=== PATIENT | female | born 1935 | race Caucasian/White ===

== ENCOUNTER 2020-07-17 08:32 | Outpatient (CLI) | payer MEDICARE, OTHER | END 2020-07-17 08:33 | disposition home or self-care (01) | LOC: CSHWCC 08:32 | PROVIDERS: ATTEND Nurse Practitioner Family | DX: I87.331 Chronic venous hypertension (idiopathic) with ulcer and inflammation of right lower extremity (principal); I87.2 Venous insufficiency (chronic) (peripheral); E11.622 Type 2 diabetes mellitus with other skin ulcer; L97.811 Non-pressure chronic ulcer of other part of right lower leg limited to breakdown of skin; I89.0 Lymphedema, not elsewhere classified; R60.0 Localized edema; E03.9 Hypothyroidism, unspecified; E11.8 Type 2 diabetes mellitus with unspecified complications; E78.2 Mixed hyperlipidemia; E78.5 Hyperlipidemia, unspecified; F03.90 Unspecified dementia, unspecified severity, without behavioral disturbance, psychotic disturbance, mood disturbance, and anxiety; L30.9 Dermatitis, unspecified; M13.80 Other specified arthritis, unspecified site; M81.0 Age-related osteoporosis without current pathological fracture; Z85.3 Personal history of malignant neoplasm of breast | CPT/HCPCS: 97139; G0463; 99213 ==

== ENCOUNTER 2021-03-24 16:47 | Observation (INO) | payer MEDICARE, OTHER ==
[2021-03-24 17:37] LABS: #Basophils 0.1 10x3/uL (0.0-0.2); #Eosinphils 0.4 10x3/uL (0.0-0.5); #Monocytes 0.7 10x3/uL (0.0-1.1); #Neutrophils 4.8 10x3/uL (1.5-8.4); %Basophils 0.9 % (0.0-2.0); %Eosinophils 5.7 % (0.0-6.0); %Lymphocytes 12.2 % (18.0-47.0); %Monocytes 9.7 % (0.0-10.0); %Neutrophils 71.1 % (40.0-75.0); Hemoglobin 10.3 g/dL (12.0-15.5); Mean Corpuscular HGB CONC 31.5 g/dL (32.0-36.0); Mean Corpuscular Hemoglobin 29.1 pg (27.0-33.0); Mean Corpuscular Volume 92.4 fl (81.6-98.3); Mean Platelet Volume 11.4 fl (7.4-10.4); Platelet Count 188 10x3/uL (150-450); RBC Distribution Width 14.6 % (11.5-14.5); Red Blood Cell (RBC) Count 3.54 10x6/uL (3.90-5.03); White Blood Cell (WBC) Count 6.7 10x3/uL (3.5-10.5)
[2021-03-24 17:37] LABS: Bilirubin Neg (Negative); Blood, Urine Negative (Negative); Clarity Clear (Clear); Glucose, Urine (Dipstick) Normal (Negative); Ketone, Urine Negative (Negative); Leukocyte Negative (Negative); Nitrite Negative (Negative); Protein, Urine (Dipstick) Negative (Neg-Trace); Urobilinogen Normal mg/dL (Less than 2)
[2021-03-24 17:49] LABS: ALT (SGPT) 12 U/L (8-55); AST (SGOT) 17 U/L (5-34); Albumin 3.7 g/dL (3.4-4.8); Alkaline Phosphatase 45 U/L (40-110); Anion Gap 13 mmol/L (10-20); BUN (Urea Nitrogen) 29 mg/dL (9.8-20.1); Bilirubin, Total 0.5 mg/dL (0.2-1.2); Calc. Creatinine Clearance 0 mL/min (70-130); Carbon Dioxide 28 mmol/L (23-31); Chloride 103 mmol/L (98-107); Globulin 2.6 g/dL (2.4-3.5); Glucose 62 mg/dL (83-110); Lipase 46 U/L (8-78); Potassium 4.4 mmol/L (3.5-5.1); Protein, Total 6.3 g/dL (5.8-8.1); Sodium 140 mmol/L (136-145)
[2021-03-24] MEDS ORDERED: Acetaminophen 325 MG TAB PO PRN (19:45)
[2021-03-24] MEDS ORDERED: Nitroglycerin 0.4 MG TAB (25 Tab Bottle) SL PRN (19:49)
[2021-03-24 20:05] LABS: Magnesium 1.9 mg/dL (1.6-2.6)
[2021-03-24] MEDS ORDERED: Donepezil HCl 5 MG TAB PO SCH (22:30)
[2021-03-24] MEDS ORDERED: Atorvastatin Calcium 10 MG TAB PO SCH (22:30)
[2021-03-24 22:32] VITALS: BMI 22.6
[2021-03-25 00:38] LABS: SARS-CoV-2 NAA Rapid Test Not Detected (NotDetected)
[2021-03-25] MEDS ORDERED: HumaLOG 300 UNITS/3 ML VIAL SC SCH ×2 (03:30→11:30)
[2021-03-25] MEDS: Levothyroxine Sodium 100 MCG TAB PO SCH (05:25)
[2021-03-25 05:32] LABS: Anion Gap 15 mmol/L (10-20); BUN (Urea Nitrogen) 32 mg/dL (9.8-20.1); Calc. Creatinine Clearance 34 mL/min (70-130); Carbon Dioxide 25 mmol/L (23-31); Chloride 104 mmol/L (98-107); Glucose 294 mg/dL (83-110); Potassium 4.1 mmol/L (3.5-5.1); Sodium 140 mmol/L (136-145)
[2021-03-25 05:39] LABS: #Basophils 0.1 10x3/uL (0.0-0.2); #Eosinphils 0.2 10x3/uL (0.0-0.5); #Monocytes 0.6 10x3/uL (0.0-1.1); #Neutrophils 3.7 10x3/uL (1.5-8.4); %Basophils 0.9 % (0.0-2.0); %Eosinophils 3.9 % (0.0-6.0); %Lymphocytes 14.6 % (18.0-47.0); %Monocytes 10.3 % (0.0-10.0); %Neutrophils 70.1 % (40.0-75.0); Hemoglobin 8.5 g/dL (12.0-15.5); Mean Corpuscular HGB CONC 31.4 g/dL (32.0-36.0); Mean Corpuscular Hemoglobin 28.6 pg (27.0-33.0); Mean Corpuscular Volume 91.2 fl (81.6-98.3); Mean Platelet Volume 11.9 fl (7.4-10.4); Platelet Count 179 10x3/uL (150-450); RBC Distribution Width 14.6 % (11.5-14.5); Red Blood Cell (RBC) Count 2.97 10x6/uL (3.90-5.03); White Blood Cell (WBC) Count 5.3 10x3/uL (3.5-10.5)
[2021-03-25] MEDS: Multivit, Therapeutic 1 TAB PO SCH (08:33)
[2021-03-25] MEDS: Lisinopril 20 MG TAB PO SCH (08:33)
[2021-03-25] MEDS: Aspirin Chewable 81 MG TAB PO SCH (08:33)
[2021-03-25] MEDS: Cholecalciferol 1,000 UNITS (25 MCG) TAB PO SCH (08:33)
[2021-03-25] MEDS: Carvedilol 3.125 MG TAB PO SCH ×2 (08:33→17:33)
[2021-03-25] MEDS: Furosemide 40 MG TAB PO SCH (08:33)
[2021-03-25] MEDS: Enoxaparin Sodium 40 MG/0.4 ML SYRINGE SC SCH (08:34)
[2021-03-25] MEDS: Famotidine 20 MG TAB PO SCH (08:34)
[2021-03-25] MEDS: Potassium Chloride 20 MEQ TAB PO SCH (08:34)
[2021-03-25] MEDS: Clopidogrel Bisulfate 75 MG TAB PO SCH (08:40)
[2021-03-25 09:45] LABS: Iron 35 ug/dL (50-170); Iron Binding Capacity, Total 316 mcg/dL (265-497)
[2021-03-25 10:01] LABS: Ferritin 36.71 ng/mL (10-291)
[2021-03-25] MEDS ORDERED: Dextrose 50% Abboject 50 ML SYRINGE SLOW IVP PRN (10:04)
[2021-03-25] MEDS ORDERED: Dextrose 5% in Water 1,000 ML IV PRN (10:04)
[2021-03-25] MEDS ORDERED: Insulin Regular 300 UNITS/3 ML VIAL SC PRN (10:04)
[2021-03-25] MEDS: Insulin Regular 300 UNITS/3 ML VIAL SC PRN ×2 (11:55→17:33)
[2021-03-25 13:49] LABS: Hemoglobin A1c 8.9 % (4.0-6.0)
[2021-03-25] MEDS: HumaLOG 300 UNITS/3 ML VIAL SC SCH (17:35)
[2021-03-25] MEDS ORDERED: Atorvastatin Calcium 10 MG TAB PO SCH (21:00)
[2021-03-25] MEDS ORDERED: Donepezil HCl 5 MG TAB PO SCH (21:00)
[2021-03-26] MEDS: Insulin Regular 300 UNITS/3 ML VIAL SC PRN (05:08)
[2021-03-26] MEDS: Levothyroxine Sodium 100 MCG TAB PO SCH (05:08)
[2021-03-26] MEDS: Aspirin Chewable 81 MG TAB PO SCH (08:59)
[2021-03-26] MEDS: Clopidogrel Bisulfate 75 MG TAB PO SCH (08:59)
[2021-03-26] MEDS: Potassium Chloride 20 MEQ TAB PO SCH (09:00)
[2021-03-26] MEDS: Furosemide 40 MG TAB PO SCH (09:00)
[2021-03-26] MEDS ORDERED: Lantus 1000 UNITS/10 ML VIAL SC SCH (09:00)
[2021-03-26] MEDS: Carvedilol 3.125 MG TAB PO SCH ×2 (09:00→17:41)
[2021-03-26] MEDS: Famotidine 20 MG TAB PO SCH (09:01)
[2021-03-26] MEDS: Lisinopril 20 MG TAB PO SCH (09:01)
[2021-03-26] MEDS: Cholecalciferol 1,000 UNITS (25 MCG) TAB PO SCH (09:02)
[2021-03-26] MEDS: Multivit, Therapeutic 1 TAB PO SCH (09:02)
[2021-03-26] MEDS: HumaLOG 300 UNITS/3 ML VIAL SC SCH ×3 (09:03→17:42)
[2021-03-26] MEDS: Enoxaparin Sodium 40 MG/0.4 ML SYRINGE SC SCH (09:03)
[2021-03-26 11:55] VITALS: TEMP 98.2
[2021-03-26 12:27] VITALS: BP 144/63
== END 2021-03-26 17:10 ==
LOC: CSHERS 16:47 → CSHTELE 22:18
PROVIDERS: ADMIT Family Medicine; ATTEND Internal Medicine
DX: E11.649 Type 2 diabetes mellitus with hypoglycemia without coma (principal); G93.41 Metabolic encephalopathy; F03.90 Unspecified dementia, unspecified severity, without behavioral disturbance, psychotic disturbance, mood disturbance, and anxiety; E11.22 Type 2 diabetes mellitus with diabetic chronic kidney disease; I12.9 Hypertensive chronic kidney disease with stage 1 through stage 4 chronic kidney disease, or unspecified chronic kidney disease; N18.32 Chronic kidney disease, stage 3b; E03.9 Hypothyroidism, unspecified; Z79.899 Other long term (current) drug therapy; Z79.82 Long term (current) use of aspirin; Z79.4 Long term (current) use of insulin; T68.XXXA Hypothermia, initial encounter; I25.10 Atherosclerotic heart disease of native coronary artery without angina pectoris; E78.5 Hyperlipidemia, unspecified; Z20.822 Contact with and (suspected) exposure to COVID-19
CPT/HCPCS: 71045; 80048; 80053; 81003; 82607; 82728; 82746; 82962 ×3; 83036; 83540; 83550; 83605; 83690; 83735; 83880; 84484; 85025 ×2; 93005; 94760; 97110; 97116; 97139 ×4; 97535; U0002; 36416; 96372; G0378; J1650; J1815

== ENCOUNTER 2023-03-30 14:28 | Outpatient (CLI) | payer MEDICARE, OTHER | END 2023-03-30 14:29 | disposition home or self-care (01) | LOC: CSHMAMMO 14:28 | PROVIDERS: ATTEND Internal Medicine Endocrinology, Diabetes & Metabolism | DX: M81.0 Age-related osteoporosis without current pathological fracture (principal); M85.88 Other specified disorders of bone density and structure, other site | CPT/HCPCS: 77080 ==